=== PATIENT | female | born 1980 | race Caucasian/White ===

== ENCOUNTER 2016-04-16 18:15 | Emergency (ER) | payer BC ==
[2016-04-16 19:50] VITALS: BP 110/70
--- NOTE | 2016-04-21 21:42 | UC ---
Head Injury HPI - HPI Summary HPI Summary: 36 yo female hit in head playing soccer the day before no LOC no neck pain some nausea today and trouble focusing no vomiting - History Of Current Complaint Chief Complaint: UCHeadInjury Stated Complaint: HEAD INJURY Time Seen by Provider: 04/16/16 19:30 Hx Obtained From: Patient Hx Last Menstrual Period: 02/15/12 Onset/Duration: Sudden Onset Severity Currently: Moderate Severity Initially: Mild Pain Intensity: 2 Pain Scale Used: 0-10 Numeric Character: Dull Aggravating Factor(s): Nothing Alleviating Factor(s): Nothing Associated Signs And Symptoms: Positive: Nausea - Allergies/Home Medications Allergies/Adverse Reactions: Allergies Allergy/AdvReac Type Severity Reaction Status Date / Time Amoxicillin Allergy GI Upset Verified 04/16/16 19:46 Nitrofurantoin Allergy Shortness Verified 04/16/16 19:46 [From Macrobid] of Breath PMH/Surg Hx/FS Hx/Imm Hx Previously Healthy: Yes Endocrine History Of: Denies: Diabetes Cardiovascular History Of: Denies: Hypertension, Pacemaker/ICD Respiratory History Of: Reports: Asthma GI/ History Of: Denies: Renal Disease - Surgical History Surgical History: Yes Surgery Procedure, Year, and Place: hysterectomy 2013; WISDOM TEETH EXTRACTION - Family History Known Family History: Positive: Respiratory Disease Family History: no known cardio-vascular issues reported in family lineage - Social History Alcohol Use: Rare Substance Use Type: None Smoking Status (MU): Never Smoked Tobacco - Immunization History Most Recent Influenza Vaccination: none Review of Systems Constitutional: Negative Skin: Negative Eyes: Negative ENT: Negative Respiratory: Negative Cardiovascular: Negative Gastrointestinal: Negative Genitourinary: Negative Motor: Negative Neurovascular: Negative Musculoskeletal: Negative Neurological: Headache Psychological: Negative All Other Systems Reviewed And Are Negative: Yes Physical Exam Triage Information Reviewed: Yes Appearance: Well-Appearing, No Pain Distress, Well-Nourished Vital Signs: Initial Vital Signs Temp 97.8 F 04/16/16 19:46 Pulse 57 04/16/16 19:46 Resp 18 04/16/16 19:46 BP 110/70 04/16/16 19:46 Pulse Ox 100 04/16/16 19:46 Vital Signs Reviewed: Yes Eyes: Positive: Conjunctiva Clear, Other: - eomi/perrl ENT: Positive: Hearing grossly normal. Negative: Nasal congestion, Nasal drainage, TMs normal, TM bulging, Tonsillar swelling, Tonsillar exudate, Trismus , Muffled/hoarse voice Neck: Positive: Supple, Nontender Respiratory: Positive: Lungs clear, Normal breath sounds, No respiratory distress, No accessory muscle use Cardiovascular: Positive: RRR, No Murmur, Pulses Normal Musculoskeletal: Positive: ROM Intact, No Edema Neurological: Positive: Alert, Other: - non focal exam Skin Exam: Normal Head Injury Course/Dx - Differential Dx/Diagnosis Provider Diagnoses: concussion-mild -with no LOC Discharge - Discharge Plan Condition: Stable Disposition: HOME Patient Education Materials: Concussion (ED) Referrals: Gustavo Hendrix [Medical Doctor] - 1 Week (if not better) Additional Instructions: tylenol or advil if needed physical rest is important avoid exercising and sports for a week see Dr. Hendrix next week if not better
== END 2016-04-16 20:15 | disposition home or self-care (01) ==
LOC: UCEAST 18:15
DX: S06.0X0A Concussion without loss of consciousness, initial encounter (principal); W22.8XXA Striking against or struck by other objects, initial encounter; Y93.66 Activity, soccer; Y92.9 Unspecified place or not applicable; Z88.1 Allergy status to other antibiotic agents; Z88.0 Allergy status to penicillin
CPT/HCPCS: 99211; G0463

== ENCOUNTER 2016-12-12 19:40 | Emergency (ER) | payer BC ==
[2016-12-12 19:48] VITALS: BP 107/74
--- NOTE | 2016-12-12 20:29 | UC ---
Lower Extremity/Ankle HPI - HPI Summary HPI Summary: 36 YEAR OLD FEMALE PRESENTS WITH COMPLAINS OF RIGHT KNEE PAIN AFTER GETTING A TICK BITE - History of Current Complaint Chief Complaint: UCGeneralIllness Stated Complaint: KNEE COMPLAINT Time Seen by Provider: 12/12/16 20:24 Hx Obtained From: Patient Hx Last Menstrual Period: hysterectomy Onset/Duration: Sudden Onset Severity Initially: Moderate Severity Currently: Moderate Pain Scale Used: 0-10 Numeric - 7 - Allergies/Home Medications Allergies/Adverse Reactions: Allergies Allergy/AdvReac Type Severity Reaction Status Date / Time Amoxicillin Allergy GI Upset Verified 12/12/16 19:48 Nitrofurantoin Allergy Shortness Verified 12/12/16 19:48 [From Macrobid] of Breath PMH/Surg Hx/FS Hx/Imm Hx Previously Healthy: Yes - Surgical History Surgical History: Yes Surgery Procedure, Year, and Place: hysterectomy 2013; WISDOM TEETH EXTRACTION - Family History Known Family History: Positive: Respiratory Disease Family History: no known cardio-vascular issues reported in family lineage - Social History Alcohol Use: Rare Substance Use Type: None Smoking Status (MU): Never Smoked Tobacco - Immunization History Most Recent Influenza Vaccination: none Review of Systems Constitutional: Negative Skin: Negative Eyes: Negative ENT: Negative Respiratory: Negative Cardiovascular: Negative Gastrointestinal: Negative Genitourinary: Negative Motor: Negative Neurovascular: Negative Musculoskeletal: Other: - RIGHT KNEE PAIN/SWELLING Neurological: Negative Psychological: Negative All Other Systems Reviewed And Are Negative: Yes Physical Exam Triage Information Reviewed: Yes Appearance: Well-Appearing Vital Signs: Initial Vital Signs Temp 36.7 C 12/12/16 19:43 Pulse 62 12/12/16 19:43 Resp 16 12/12/16 19:43 BP 107/74 12/12/16 19:43 Pulse Ox 99 12/12/16 19:43 Eye Exam: Normal ENT Exam: Normal Dental Exam: Normal Neck exam: Normal Neck: Positive: 1 Respiratory Exam: Normal Cardiovascular Exam: Normal Abdominal Exam: Normal Musculoskeletal: Positive: Other: - RIGHT KNEE SWELLING Neurological Exam: Normal Psychological Exam: Normal Skin Exam: Normal Lower Extremity Course/Dx - Differential Dx/Diagnosis Provider Diagnoses: RIGHT KNEE SWELLING/PAIN Discharge - Discharge Plan Condition: Stable Disposition: HOME Prescriptions: DOXYcycline CAP(*) [DOXYcycline 100MG CAP(*)] 100 mg PO BID #42 cap Patient Education Materials: Lyme Disease (ED), Tick Bite (ED) Referrals: Jennifer Morrow MD [Primary Care Provider] -
[2016-12-12] MEDS ORDERED: DOXYcycline CAP(*) 100 MG PO ONE (20:30)
[2016-12-13 11:08] LABS: Hematocrit 40 % (35-47); Hemoglobin 13.3 g/dl (12.0-16.0); Mean Corpuscular HGB Conc 34 g/dl (31-36); Mean Corpuscular Hemoglobin 31 pg (27-31); Mean Corpuscular Volume 90 fL (80-97); Mean Platelet Volume 9 um3 (7.4-10.4); Red Blood Count 4.37 10^6/ul (4.0-5.4); Red Cell Distribution Width 13 % (10.5-15); White Blood Count 4.6 10^3/ul (3.5-10.8)
[2016-12-13 11:28] LABS: Albumin 4.6 g/dL (3.2-5.2); BUN/Creatinine Ratio 12.8 (8-20); Calcium 9.3 mg/dL (8.6-10.3); EGFR African American 107.5 (>60); EGFR Non-African American 83.6 (>60); Globulin 2.4 g/dL (2-4); Potassium 4.4 mmol/L (3.5-5.0); Total Bilirubin 1.6 mg/dL (0.2-1.0)
--- NOTE | 2016-12-13 16:37 | UC ---
Progress - Progress Note Progress Note: CALL PATIENT LYME PENDING. INDICDENTAL FINDINGS ON LABS WHICH CAN BE FOLLOWED BY PCP - ELEVATED TOTAL BILIRUBIN, ELEVATED LYMPHOCYTES, LOW NEUTROPHILS. NO EMERGENCY CAN FOLLOW WITH PCP. PATIENT IS A [employer].
--- NOTE | 2016-12-14 22:38 | UC ---
Progress - Progress Note Progress Note: CALL PATIENT LYME PENDING. INDICDENTAL FINDINGS ON LABS WHICH CAN BE FOLLOWED BY PCP - ELEVATED TOTAL BILIRUBIN, ELEVATED LYMPHOCYTES, LOW NEUTROPHILS. NO EMERGENCY CAN FOLLOW WITH PCP. PATIENT IS A [employer]. lyme neg. please call pt and inform of neg lyme test. let pt know that a single test does not rule out lyme. f/u with pcp for recheck in 1-2 weeks
== END 2016-12-12 21:10 | disposition home or self-care (01) ==
LOC: UCEAST 19:40
DX: M25.561 Pain in right knee (principal); M25.461 Effusion, right knee; Z90.710 Acquired absence of both cervix and uterus; Z88.1 Allergy status to other antibiotic agents
CPT/HCPCS: 36415; 80053; 85025; 86618; 99212; A9270-GY; G0463